=== PATIENT | female | born 1970 | race African-American/Black ===

== ENCOUNTER 2017-05-12 13:15 | Inpatient (IN) | payer MEDICAID ==
[~2017-05-12] VITALS: Ht 160 cm; Wt 70.3 kg
[2017-05-12] MEDS ORDERED: ONDANSETRON HCL 4MG/2ML VIAL IV STA (15:04)
[2017-05-12] MEDS ORDERED: SODIUM CHLORIDE 0.9% 1,000 ML IV ONE (15:04)
[2017-05-12] MEDS ORDERED: MORPHINE SULFATE 4 MG/ML CPJ (NOT FOR IM USE) IV STA (15:04)
[2017-05-12 15:36] LABS: BASOPHILS % 0.7 % (0.0-2.0); EOSINOPHILS % 0.2 % (0.0-5.0); HEMATOCRIT. 42.3 % (36.0-48.0); HEMOGLOBIN. 14.6 g/dL (12.0-16.0); LYMPHOCYTES % 19.8 % (20.0-50.0); MEAN CORPUSCULAR HEMOGLOBIN 31.4 pg (28.0-32.0); MEAN CORPUSCULAR VOLUME 90.7 fL (81.0-99.0); MEAN PLATELET VOLUME 8.2 fl (7.4-10.4); MONOCYTES % 7.7 % (2.0-8.0); NEUTROPHILS % 71.6 % (40.0-76.0); PLATELET 173 x1000/uL (130-400); RED BLOOD CELL COUNT 4.66 mill/uL (4.2-5.4); RED CELL DISTRIBUTION WIDTH 13.1 % (11.6-14.6)
[2017-05-12 15:41] LABS: CHLORIDE 108 mEq/L (98-107)
[2017-05-12 15:51] LABS: CARBON DIOXIDE 30 mEq/L (21-32)
[2017-05-12 15:52] LABS: PROTHROMBIN TIME 10.7 sec (9.4-11.6)
[2017-05-12] MEDS ORDERED: DIPHENHYDRAMINE 50MG/ML VIAL IV ONE ×2 (16:15→21:30)
[2017-05-12 16:41] LABS: CLARITY URINE CLEAR (CLEAR); COLOR URINE YELLOW (YELLOW); GLUCOSE URINE NEGATIVE (NEGATIVE); KETONES URINE NEGATIVE (NEGATIVE); LEUKOCYTE ESTERASE URINE 1+ (NEGATIVE); NITRITE URINE NEGATIVE (NEGATIVE); OCCULT BLOOD URINE TRACE (NEGATIVE); PROTEIN URINE NEGATIVE (NEGATIVE); UROBILINOGEN URINE 0.2 E.U./dL (0.2-1.0)
[2017-05-12] MEDS ORDERED: ACETAMINOPHEN 325MG TABLET PO PRN (20:00)
[2017-05-12] MEDS ORDERED: LORAZEPAM 2MG/ML CPJ IV ONE (21:30)
[2017-05-12] MEDS ORDERED: MORPHINE SULFATE 4 MG/ML CPJ (NOT FOR IM USE) IV ONE (21:30)
[2017-05-12] MEDS ORDERED: CEFTRIAXONE 1 G PREMIX 50 ML IV NR (23:45)
[2017-05-13] VITALS (7 sets, daily range): BP systolic 80–109; BP diastolic 50–69
[2017-05-13] MEDS ORDERED: LORAZEPAM 2MG/ML CPJ IV PRN (03:00)
[2017-05-13] MEDS ORDERED: ACETAMINOPHEN 325MG TABLET PO PRN (03:00)
[2017-05-13] MEDS ORDERED: SODIUM CHLORIDE 0.9% 1000ML BAG (SEPSIS BOLUS) IV ONE (12:30)
[2017-05-13] MEDS ORDERED: SODIUM CHLORIDE 0.9% 500 ML IV ONE (12:30)
[2017-05-13] MEDS: KETOROLAC 30MG/ML VIAL IV PRN (12:42)
[2017-05-13 14:27] LABS: *AMPHETAMINES SCREEN URINE NEGATIVE (NEGATIVE); *BARBITURATES SCREEN URINE NEGATIVE (NEGATIVE); *BENZODIAZEPINES SCREEN URINE NEGATIVE (NEGATIVE); *COCAINE SCREEN URINE NEGATIVE (NEGATIVE); CANNABINOID URINE SCREEN NEGATIVE (NEGATIVE); METHADONE URINE SCREEN NEGATIVE (NEGATIVE); OPIATES URINE SCREEN NEGATIVE (NEGATIVE); PHENCYCLIDINE URINE SCREEN NEGATIVE (NEGATIVE)
[2017-05-13] MEDS: LEVOFLOXACIN 500MG PREMIX 100 ML IV SCH (15:08)
[2017-05-13] MEDS: SODIUM CHLORIDE 0.9% 1,000 ML IV SCH (15:08)
[2017-05-13] MEDS: HYDROCODONE/ACETAMINOPHEN 5/325MG TABLET PO PRN ×2 (15:12→20:13)
[2017-05-13] MEDS: METRONIDAZOLE 500 MG PREMIX 100 ML IV SCH (16:16)
[2017-05-14] VITALS: BP 93/57
[2017-05-14] MEDS: METRONIDAZOLE 500 MG PREMIX 100 ML IV SCH ×4 (01:49→22:23)
[2017-05-14] MEDS: SODIUM CHLORIDE 0.9% 1,000 ML IV SCH ×2 (01:49→14:52)
[2017-05-14 04:00] VITALS: BP 92/51
[2017-05-14 05:22] LABS: BASOPHILS % 0.7 % (0.0-2.0); EOSINOPHILS % 0.2 % (0.0-5.0); HEMATOCRIT. 36.3 % (36.0-48.0); HEMOGLOBIN. 12.5 g/dL (12.0-16.0); LYMPHOCYTES % 30.4 % (20.0-50.0); MEAN CORPUSCULAR HEMOGLOBIN 31.1 pg (28.0-32.0); MEAN CORPUSCULAR VOLUME 90.5 fL (81.0-99.0); MEAN PLATELET VOLUME 8.5 fl (7.4-10.4); MONOCYTES % 11.5 % (2.0-8.0); NEUTROPHILS % 57.2 % (40.0-76.0); PLATELET 160 x1000/uL (130-400); RED BLOOD CELL COUNT 4.01 mill/uL (4.2-5.4); RED CELL DISTRIBUTION WIDTH 13.4 % (11.6-14.6)
[2017-05-14 05:43] LABS: CHLORIDE 107 mEq/L (98-107)
[2017-05-14 05:57] LABS: CARBON DIOXIDE 30 mEq/L (21-32)
[2017-05-14 08:00] VITALS: BP 112/66
[2017-05-14] MEDS: HYDROCODONE/ACETAMINOPHEN 5/325MG TABLET PO PRN ×2 (08:21→15:53)
[2017-05-14 12:00] VITALS: BP 96/43
[2017-05-14] MEDS: METHYLPREDNISOLONE SOD SUCC 40 MG/ML VIAL IV SCH ×2 (14:50→22:23)
[2017-05-14 16:00] VITALS: BP 94/47
[2017-05-14] MEDS: LEVOFLOXACIN 500MG PREMIX 100 ML IV SCH (17:50)
[2017-05-14 19:49] VITALS: BP 128/71
[2017-05-14] MEDS: KETOROLAC 30MG/ML VIAL IV PRN (19:49)
[2017-05-14] MEDS: DIPHENHYDRAMINE 50MG/ML VIAL IV PRN (20:22)
[2017-05-15] VITALS: BP 99/56
[2017-05-15] MEDS: KETOROLAC 30MG/ML VIAL IV PRN (02:57)
[2017-05-15 04:00] VITALS: BP 105/57
[2017-05-15] MEDS: HYDROCODONE/ACETAMINOPHEN 5/325MG TABLET PO PRN (04:14)
[2017-05-15] MEDS: METHYLPREDNISOLONE SOD SUCC 40 MG/ML VIAL IV SCH (06:43)
[2017-05-15 08:00] VITALS: BP 94/41
[2017-05-15] MEDS: SODIUM CHLORIDE 0.9% 1,000 ML IV SCH (09:13)
[2017-05-15] MEDS: METRONIDAZOLE 500 MG PREMIX 100 ML IV SCH (09:14)
[2017-05-15] MEDS: DIPHENHYDRAMINE 50MG/ML VIAL IV PRN (09:29)
[2017-05-15] MEDS ORDERED: SORBITOL 70% SOLN 30ML PO NR ×2 (16:00→20:00)
[2017-05-15] MEDS ORDERED: BISACODYL 5MG TABLET PO NR ×2 (16:00→20:00)
[2017-05-17 13:12] LABS: ANTI-MYELOPEROXIDASE AB < 9.0 U/mL (0.0-9.0); ANTI-PROTEINASE 3 ABS < 3.5 U/mL (0.0-3.5); ATYPICAL P-ANCA <1:20 titer (Neg:<1:20); ATYPICAL pANCA <1:20 titer (Neg:<1:20); CYTOPLASMIC C-ANCA <1:20 titer (Neg:<1:20); PERINUCLEAR P-ANCA <1:20 titer (Neg:<1:20)
[2017-05-20 13:06] LABS: SACCHAROMYCES CEREVISIAE IGG <20.0 Units (0.0-24.9); SACCHAROMYCES CEREVISIAE IGM <20.0 Units (0.0-24.9)
== END 2017-05-15 14:52 | disposition left against medical advice (07) | DRG 245 ==
LOC: ER 13:55 → 6EST 19:58 → ENRESERV 21:34
PROVIDERS: ADMIT Family Medicine; ATTEND Family Medicine
DX: K50.90 Crohn's disease, unspecified, without complications (principal); K76.0 Fatty (change of) liver, not elsewhere classified; E88.09 Other disorders of plasma-protein metabolism, not elsewhere classified; N39.0 Urinary tract infection, site not specified; F29 Unspecified psychosis not due to a substance or known physiological condition; R91.8 Other nonspecific abnormal finding of lung field; K52.9 Noninfective gastroenteritis and colitis, unspecified; R59.0 Localized enlarged lymph nodes; Z53.21 Procedure and treatment not carried out due to patient leaving prior to being seen by health care provider; Z88.6 Allergy status to analgesic agent; Z87.11 Personal history of peptic ulcer disease
CPT/HCPCS: 36415; 74177; 78306; 80053; 80305; 81001; 83520; 83690; 85025; 85610; 85651; 86140; 86256; 86671; 87086; 96361; 96374; 96375; 96376; 99285; A9503; C1893; J0696; J1200; J1885; J1956; J2060; J2270; J2405; J2920; J3490; J7030; J7040